=== PATIENT | female | born 1990 | race Caucasian/White ===

== ENCOUNTER 2017-04-27 11:35 | Emergency (ER) | payer OTHER ==
[~2017-04-27] VITALS: Ht 167.6 cm; Wt 62.6 kg
[2017-04-27] MEDS ORDERED: HYDROCODON-ACE1 EAC7 PO (12:02)
[2017-04-27] MEDS ORDERED: FLEXERIL10 MG (12:03)
[2017-04-27 12:37] LABS: URINE SOURCE CLEAN CATCH
[2017-04-27 12:41] LABS: MICRO INDICATED? NO; URINE APPEARANCE CLEAR; URINE BILIRUBIN NEG (NEG); URINE BLOOD NEG (NEG); URINE COLOR YELLOW; URINE GLUCOSE NEG (NORM); URINE KETONE NEG (NEG); URINE LEUKOCYTE ESTERASE NEG (NEG); URINE NITRATE NEG (NEG); URINE PROTEIN NEG (NEG); URINE UROBILINOGEN 0.2 MG/DL (NORM)
== END 2017-04-27 12:50 | disposition home or self-care (01) ==
LOC: SED 11:35
PROVIDERS: Physician Assistant
DX: Z11.3 Encounter for screening for infections with a predominantly sexual mode of transmission (principal); Z90.89 Acquired absence of other organs
CPT/HCPCS: 81003; 96372; 99283; J0696